=== PATIENT | female | born 1980 | race Caucasian/White ===

== ENCOUNTER 2017-01-21 11:45 | Emergency (ER) | payer OTHER ==
[~2017-01-21] VITALS: Ht 152.4 cm; Wt 58.9 kg
[~2017-01-21 11:45] MED LIST: CIPRO250 MG PO; Colace PO; Dilaudid PO; Feosol PO; LOPRESSOR50 MG PO; Levaquin PO; MECLIZINE HCL25 MG PO; Maxipime IV; Motrin PO; PERCOCET PO; PRENATAL VITAM1 EAC3 PO; PROTONIX40 MG PO; Phenergan PO; TRAMADOL HCL50 MG PO; Tylenol Regular Stre PO
[2017-01-21 13:40] VITALS: BP 103/66
[2017-01-21] MEDS ORDERED: TRAMADOL HCL50 MG PO (13:56)
== END 2017-01-21 14:07 | disposition home or self-care (01) ==
LOC: EME 11:45
DX: R51 Headache (principal); R11.2 Nausea with vomiting, unspecified; H53.149 Visual discomfort, unspecified; F17.200 Nicotine dependence, unspecified, uncomplicated
CPT/HCPCS: 99281; 99284; J0780; J1885; J7030

== ENCOUNTER 2017-06-13 07:27 | Emergency (ER) | payer OTHER ==
[~2017-06-13] VITALS: Ht 152.4 cm; Wt 58.2 kg
[2017-06-13 07:53] LABS: HEMOGLOBIN 13.4 G/DL (11.9-15.5); MCH 31.3 PG (29.0-34.0); MCHC 34.4 G/DL (30.0-36.0); MCV 91.1 FL (83-99); RBC DIS.WIDTH-CV 12.7 % (11.8-14.6); RED BLOOD COUNT 4.28 M/uL (3.80-5.20); WHITE BLOOD COUNT 7.4 K/uL (4.1-10.2)
[2017-06-13 08:05] LABS: CHLORIDE 104 mEq/L (99-109); POTASSIUM 4.2 mEq/L (3.7-5.4); SODIUM 140 mEq/L (136-147)
[2017-06-13 08:06] LABS: GLUCOSE 86 mg/dL (70-99)
[2017-06-13 08:10] LABS: CREATININE 0.8 mg/dL (0.6-1.3); GFR ESTIMATE (CALCULATED) > 59 mL/min/
[2017-06-13 08:11] LABS: UREA NITROGEN (BUN) 15 mg/dL (9-23)
[2017-06-13 08:47] LABS: PLAT.SUFFICIENCY ADEQUATE; PLATELET COUNT 239 K/uL (156-360)
[2017-06-13 15:49] LABS: APPEARANCE CLOUDY ((CLEAR)); BILIRUBIN NEGATIVE; BLOOD LARGE; COLOR YELLOW ((YELLOW)); GLUCOSE (STRIP) NEGATIVE; KETONES 5; LEUKOCYTES TRACE; NITRITE NEGATIVE; PROTEIN (STRIP) 30; SPECIFIC GRAVITY 1.013 (1.000-1.030); UROBILINOGEN 0.2 MG/DL (0.2-1.0)
[2017-06-13 15:56] LABS: BACTERIA 1+ /HPF; CALCIUM OXALATE CRYSTALS 1+ /HPF; EPITHELIAL CELLS 2+ /HPF; MUCUS 3+ /LPF; RED BLOOD CELLS 0-5 /HPF (0-5); UCUL ADDED? NO; WHITE BLOOD CELLS 0-5 /HPF (0-5)
[2017-06-13] MEDS ORDERED: ZOFRAN ODT4 MG PO (16:13)
[2017-06-13] MEDS ORDERED: PHENERGAN25 MG PR (16:13)
[2017-06-13] MEDS ORDERED: NAPROSYN500 MG PO (16:13)
[2017-06-13 16:43] VITALS: BP 96/59
== END 2017-06-13 16:43 | disposition home or self-care (01) ==
LOC: EME 07:27
PROVIDERS: Nurse Practitioner Family
DX: B34.9 Viral infection, unspecified (principal); F17.200 Nicotine dependence, unspecified, uncomplicated; Z86.69 Personal history of other diseases of the nervous system and sense organs
CPT/HCPCS: 80048; 81003; 85027; 87502; 99281; 99285; J1885; J2765; J7030; J7040